=== PATIENT | male | born 1945 | race Caucasian/White ===

== ENCOUNTER 2018-03-20 17:27 | Emergency (ER) | payer OTHER ==
[~2018-03-20] VITALS: Ht 175.3 cm; Wt 61.2 kg
[2018-03-20 17:28] VITALS: Ht 175.3 cm; Wt 61.2 kg
[2018-03-20] MEDS ORDERED: CARVEDILOL25 M1 PO (17:42)
[2018-03-20] MEDS ORDERED: ASPIR 8181 MG PO (17:42)
[2018-03-20] MEDS ORDERED: ATORVASTATIN CA40 M1 PO (17:42)
[2018-03-20] MEDS ORDERED: FINASTERIDE5 M1 PO (17:43)
[2018-03-20] MEDS ORDERED: GOOD SENSE OMEP20 MG PO (17:43)
[2018-03-20] MEDS ORDERED: FERROUS SULFAT325 M2 PO (17:43)
[2018-03-20] MEDS ORDERED: CARAFATE1 GM/10 ML PO (17:44)
[2018-03-20] MEDS ORDERED: FIBER LAX625 MG PO (17:44)
[2018-03-20] MEDS ORDERED: TAMSULOSIN HYD0.4 M1 PO (17:45)
[2018-03-20] MEDS ORDERED: ACETAMINOPHEN A1 TAB PO (17:45)
[2018-03-20] MEDS ORDERED: LOCALNESIUM1 TAB (17:46)
[2018-03-20 18:13] LABS: CALCIUM 8.1 mg/dL (8.5-10.1); CARBON DIOXIDE 25.8 mmol/L (21-32); CHLORIDE SERUM 100 mmol/L (98-107); CREATININE SERUM 0.9 mg/dL (0.7-1.3); GLUCOSE SERUM 111 mg/dL (74-106); POTASSIUM SERUM 4.6 mmol/L (3.5-5.1); SODIUM SERUM 134 mmol/L (136-145)
[2018-03-20 18:14] LABS: RED CELL DISTRIBUTION WIDTH 17.2 % (11.5-14.5)
[2018-03-20 18:17] LABS: ALKALINE PHOSPHATASE 59 U/L (46-116); ALT/SGPT 20 U/L (16-63); AST/SGOT 14 U/L (15-37); BILIRUBIN TOTAL 0.73 mg/dL (0.20-1.00)
[2018-03-20 18:18] LABS: TOTAL PROTEIN, SERUM 5.4 g/dL (6.4-8.2)
[2018-03-20 18:29] LABS: MONOCYTE 2 % (0-7); SEGMENTED NEUTROPHILS 73 % (37-75); T3 TOTAL 0.58 ng/mL
[2018-03-20 18:30] LABS: BAND NEUTROPHIL 14 % (0-10); BASOPHIL 0 % (0-2); METAMYELOCTE 2 % (0-2); MYELOCYTE 2 % (0-2); ovalocyte/elliptocyte 1+; rbc morphology (normal/abnorm) ABNORMAL (NORMAL); schistocyte (helmet cell) 1+
[2018-03-20 18:31] LABS: PLATELET MORPHOLOGY PLATELETS DECREASED
[2018-03-20 18:33] LABS: PLATELET COUNT 38 x10^3mcL (130-400)
[2018-03-20 18:45] LABS: FREE T4 1.54 ng/dL (0.76-1.46); FREE THYROXINE INDEX 2.7 ug/dL (1.4-4.5); T4(THYROXINE) 6.7 ug/dL (4.7-13.3)
[2018-03-20 20:07] VITALS: BP 92/66
== END 2018-03-20 20:07 | disposition short-term general hospital (02) ==
LOC: ED 17:27
PROVIDERS: Emergency Medicine
DX: I48.91 Unspecified atrial fibrillation (principal); E86.0 Dehydration; D61.818 Other pancytopenia; Z86.711 Personal history of pulmonary embolism; J44.9 Chronic obstructive pulmonary disease, unspecified; I25.10 Atherosclerotic heart disease of native coronary artery without angina pectoris; I25.2 Old myocardial infarction; Z85.01 Personal history of malignant neoplasm of esophagus; Z85.028 Personal history of other malignant neoplasm of stomach; Z86.2 Personal history of diseases of the blood and blood-forming organs and certain disorders involving the immune mechanism; Z86.79 Personal history of other diseases of the circulatory system
CPT/HCPCS: 84439; J2270; J2405; J7030; Q0092